=== PATIENT | female | born 1950 | race Caucasian/White ===

== ENCOUNTER 2025-05-06 12:15 | Inpatient (IN) | payer MEDICARE, OTHER ==
[~2025-05-06] VITALS: Ht 162.6 cm; Wt 51.7 kg
[2025-05-06] MEDS ORDERED: CEFTRIAXONE 1GM BAG (ER ONLY) 50 ML IV ONE (12:43)
[2025-05-06 12:50] LABS: PLATELET COUNT (AUTO) 259 K/uL (150-450); RED BLOOD CELL COUNT(AUTO) 3.16 MIL/uL (4.0-5.2); RED CELL DISTRIBUTION WIDTH 14.6 % (11.5-15.0); WHITE BLOOD COUNT (AUTO) 12.1 K/uL (4.3-11.0)
[2025-05-06] MEDS: IV NS 0.9% 1,000 ML BAG IV ONE (12:50)
[2025-05-06] MEDS: CEFTRIAXONE 1 G in IV D5W 50 ML IV ONE (12:51)
[2025-05-06 12:59] LABS: CALCIUM, SERUM 9.8 mg/dL (8.5-10.1); CREATININE 1.5 mg/dL (0.6-1.3); SODIUM SERUM 143 mmol/L (136-145); UREA NITROGEN, BLOOD 37 mg/dL (7-18)
[2025-05-06 13:06] LABS: ASPARTATE AMINOTRANSFERASE 17 U/L (15-37); TOTAL PROTEIN, SERUM 7.1 g/dL (6.4-8.2)
[2025-05-06 13:07] LABS: LACTIC ACID 1.3 mmol/L (0.4-2.0)
[2025-05-06 13:12] LABS: INR 1.04 (0.91-1.10)
[2025-05-06] MEDS ORDERED: INSULIN REGULAR, HUMAN 100 UNIT/ML 10 ML VIAL IV ONE (14:30)
[2025-05-06] MEDS ORDERED: DEXTROSE 50%-WATER 50 ML DISP.SYRIN IV ONE (14:30)
[2025-05-06] MEDS ORDERED: Calcium Gluconate 1GM/10ML 4.65 MEQ in IV NS 0.9% 100 ML IV ONE (14:30)
[2025-05-06] MEDS ORDERED: SODIUM BICARBONATE SYR 50 MEQ/50 ML DISP.SYRIN IV ONE (14:30)
[2025-05-06] MEDS ORDERED: SODIUM ZIRCONIUM CYCLOSILICATE 10 GM POWD.PACK ONE (15:02)
[2025-05-06] MEDS: SODIUM ZIRCONIUM CYCLOSILICATE 10 GM POWD.PACK PO ONE (15:08)
[2025-05-06 15:16] LABS: APPEARANCE,URINE CLEAR (CLEAR); BLOOD, URINE NEGATIVE Ery/uL (NEGATIVE); LEUKOCYTE ESTERASE ,URINE NEGATIVE (NEGATIVE); NITRITE, URINE NEGATIVE (NEGATIVE); UGLUCOSE NEGATIVE (NEGATIVE)
[2025-05-06] MEDS ORDERED: Z GUARD REMEDY 4 OZ OINT TP PRN (15:30)
[2025-05-06] MEDS ORDERED: MAG HYDROX/AL HYDROX/SIMETH 30 ML UDC PO PRN (15:30)
[2025-05-06] MEDS: IV NS 0.9% 1,000 ML IV PRN (16:50)
[2025-05-06] MEDS: ENOXAPARIN SODIUM 30 MG/0.3 ML DISP.SYRIN SQ SCH (16:52)
[2025-05-06 18:50] VITALS: BP 113/64; TEMP 98.3; O2SAT 98
[2025-05-06] MEDS: ACETAMINOPHEN 325 MG TABLET PO PRN (19:33)
[2025-05-06 20:00] VITALS: BP 125/82; TEMP 98.1; O2SAT 99
[2025-05-07] VITALS: BP 101/57; TEMP 97.3; O2SAT 95
[2025-05-07 04:00] VITALS: BP 127/80; TEMP 98.1; O2SAT 96
[2025-05-07 07:12] LABS: PLATELET COUNT (AUTO) 217 K/uL (150-450); RED BLOOD CELL COUNT(AUTO) 2.94 MIL/uL (4.0-5.2); RED CELL DISTRIBUTION WIDTH 14.8 % (11.5-15.0); WHITE BLOOD COUNT (AUTO) 8.9 K/uL (4.3-11.0)
[2025-05-07 08:00] VITALS: BP 120/72; TEMP 97.8; O2SAT 98
[2025-05-07 08:09] LABS: CALCIUM, SERUM 9.3 mg/dL (8.5-10.1); CREATININE 1.2 mg/dL (0.6-1.3); PHOSPHORUS 5.1 mg/dL (2.5-4.9); SODIUM SERUM 146.0 mmol/L (136-145); UREA NITROGEN, BLOOD 30.0 mg/dL (7-18)
[2025-05-07 12:00] VITALS: BP 118/71; TEMP 98.4; O2SAT 97
[2025-05-07] MEDS: CEFTRIAXONE 1 G in IV D5W 50 ML IV SCH (12:07)
[2025-05-07] MEDS: MAGNESIUM OXIDE 400 MG TABLET PO ONE (12:07)
[2025-05-07 16:00] VITALS: BP 129/67; TEMP 98.1; O2SAT 98
[2025-05-07 20:00] VITALS: BP 122/61; TEMP 98.2; O2SAT 95
[2025-05-08 07:12] LABS: PLATELET COUNT (AUTO) 189 K/uL (150-450); RED BLOOD CELL COUNT(AUTO) 2.75 MIL/uL (4.0-5.2); RED CELL DISTRIBUTION WIDTH 14.4 % (11.5-15.0); WHITE BLOOD COUNT (AUTO) 8.0 K/uL (4.3-11.0)
[2025-05-08 07:25] LABS: CREATINE KINASE, TOTAL 13 U/L (26-192)
[2025-05-08 07:29] LABS: ASPARTATE AMINOTRANSFERASE 16 U/L (15-37); CALCIUM, SERUM 8.9 mg/dL (8.5-10.1); CREATININE 1.1 mg/dL (0.6-1.3); PHOSPHORUS 4.9 mg/dL (2.5-4.9); SODIUM SERUM 143 mmol/L (136-145); TOTAL PROTEIN, SERUM 6.1 g/dL (6.4-8.2); UREA NITROGEN, BLOOD 21 mg/dL (7-18)
[2025-05-08 08:00] VITALS: BP 122/63; TEMP 98.5; O2SAT 99
[2025-05-08] MEDS: MAGNESIUM OXIDE 400 MG TABLET PO ONE (12:25)
[2025-05-08] MEDS ORDERED: DOCU100C36 PO (12:26)
[2025-05-08] MEDS ORDERED: INSU100I26 SQ (12:26)
[2025-05-08] MEDS ORDERED: OXYC-117 PO (12:26)
[2025-05-08] MEDS ORDERED: ASCO500T10 PO (12:26)
[2025-05-08] MEDS ORDERED: POTA-88 PO (12:26)
[2025-05-08] MEDS ORDERED: ACET325T53 PO (12:26)
[2025-05-08] MEDS ORDERED: INSU100V39 SQ (12:26)
[2025-05-08] MEDS ORDERED: LIDO30AD10 TP (12:26)
[2025-05-08] MEDS ORDERED: SENN-261 PO (12:26)
[2025-05-08] MEDS ORDERED: PHEN26CR2 RC (12:26)
[2025-05-08] MEDS ORDERED: ALLO100T PO (12:26)
[2025-05-08] MEDS ORDERED: GABA400C PO (12:26)
[2025-05-08] MEDS ORDERED: BISA10SU11 RC (12:26)
[2025-05-08] MEDS ORDERED: AMIN30LI27 PO (12:26)
[2025-05-08] MEDS ORDERED: FERR325T24 PO (12:26)
[2025-05-08] MEDS ORDERED: NA P133E RC (12:26)
[2025-05-08] MEDS ORDERED: BACL5TAB PO (12:26)
[2025-05-08] MEDS ORDERED: MIRT-90 PO (12:26)
[2025-05-08] MEDS ORDERED: MAGN400O6 PO (12:26)
[2025-05-08] MEDS ORDERED: NALO4SPR NS (12:26)
[2025-05-08] MEDS ORDERED: CELE200C PO (12:26)
[2025-05-08] MEDS ORDERED: CARV3.122 PO (12:26)
[2025-05-08] MEDS ORDERED: OXYC1TAB10 PO (12:26)
[2025-05-08] MEDS ORDERED: MULT-213 PO (12:26)
[2025-05-08] MEDS ORDERED: FURO40TA5 PO (12:26)
[2025-05-08] MEDS ORDERED: ERGO500040 PO (12:26)
[2025-05-08] MEDS ORDERED: PANT40TA2 PO (12:26)
[2025-05-08 16:00] VITALS: BP 129/66; TEMP 97.7; O2SAT 98
[2025-05-08 21:01] VITALS: BP 127/66; TEMP 97.7; O2SAT 98
[2025-05-08] MEDS: INSULIN REGULAR, HUMAN 100 UNIT/ML 3 ML VIAL SQ PRN (21:15)
[2025-05-08] MEDS: BLOOD SUGAR DIAGNOSTIC 1 EACH STRIP IN SCH (21:15)
[2025-05-09 07:12] LABS: CALCIUM, SERUM 8.9 mg/dL (8.5-10.1); CREATININE 1.0 mg/dL (0.6-1.3); SODIUM SERUM 141.0 mmol/L (136-145); UREA NITROGEN, BLOOD 15.0 mg/dL (7-18)
[2025-05-09 08:12] LABS: PTH, INTACT 10 pg/mL (15-65)
[2025-05-09 08:53] VITALS: BP 139/62; TEMP 97.7; O2SAT 100
[2025-05-09] MEDS: MAGNESIUM OXIDE 400 MG TABLET PO ONE (11:10)
[2025-05-09] MEDS: ONDANSETRON HCL/PF 4 MG/2 ML VIAL IVP PRN (13:17)
[2025-05-09 16:19] VITALS: BP 129/59; TEMP 97.9; O2SAT 99
[2025-05-09] MEDS: ENSURE ENLIVE 237 ML LIQUID (VANILLA) PO SCH (17:34)
[2025-05-09 20:00] VITALS: BP 125/81; TEMP 98.1; O2SAT 99
[2025-05-10 07:39] LABS: CALCIUM, SERUM 8.6 mg/dL (8.5-10.1); CREATININE 0.8 mg/dL (0.6-1.3); SODIUM SERUM 141.0 mmol/L (136-145); UREA NITROGEN, BLOOD 13.0 mg/dL (7-18)
[2025-05-10 08:00] VITALS: BP 124/67; TEMP 98.2; O2SAT 96
[2025-05-10] MEDS: MAGNESIUM OXIDE 400 MG TABLET PO ONE (10:01)
[2025-05-10] MEDS: GABAPENTIN 300 MG CAPSULE PO SCH (11:02)
[2025-05-10 12:48] LABS: IRON, SERUM 48 ug/dl (50-175)
[2025-05-10 20:00] VITALS: BP 127/79; TEMP 98.6; O2SAT 96
[2025-05-11 06:11] LABS: PLATELET COUNT (AUTO) 162 K/uL (150-450); RED BLOOD CELL COUNT(AUTO) 2.80 MIL/uL (4.0-5.2); RED CELL DISTRIBUTION WIDTH 14.3 % (11.5-15.0); WHITE BLOOD COUNT (AUTO) 7.3 K/uL (4.3-11.0)
[2025-05-11 06:30] LABS: CALCIUM, SERUM 8.4 mg/dL (8.5-10.1); CREATININE 0.8 mg/dL (0.6-1.3); SODIUM SERUM 139.0 mmol/L (136-145); UREA NITROGEN, BLOOD 16.0 mg/dL (7-18)
[2025-05-11 08:00] VITALS: BP 110/51; TEMP 97.9; O2SAT 98
[2025-05-11] MEDS ORDERED: BACLOFEN (10 MG) 10 MG TABLET PO PRN (08:00)
[2025-05-11] MEDS ORDERED: NALOXONE HCL 4 MG SPRAY NS PRN (08:00)
[2025-05-11] MEDS ORDERED: NA PHOS,M-B/NA PHOS,DI-BA 1 EA ENEMA RC PRN (08:00)
[2025-05-11] MEDS: LIDOCAINE 5% (PATCH) 1 EA PATCH TP SCH (08:25)
[2025-05-11] MEDS: ASCORBIC ACID 500 MG TABLET PO SCH (08:27)
[2025-05-11] MEDS: MULTIVITAMINS,THERAGRAN 1 UDTAB TABLET PO SCH (08:27)
[2025-05-11] MEDS: DOCUSATE SODIUM 100 MG CAPSULE PO SCH (08:27)
[2025-05-11] MEDS: oxyCODONE/APAP (5/325 MG) 1 UDTAB TABLET PO PRN (08:28)
[2025-05-11] MEDS: CARVEDILOL 3.125 MG TABLET PO SCH (08:29)
[2025-05-11] MEDS: FUROSEMIDE 40 MG TABLET PO SCH (08:29)
[2025-05-11] MEDS: POTASSIUM CHLORIDE 20 MEQ TAB.PRT.SR PO SCH (08:29)
[2025-05-11] MEDS: CELECOXIB 100 MG CAPSULE PO SCH (08:29)
[2025-05-11] MEDS ORDERED: PHENYLEPHRINE/SHK LV/MO/PET,WH 30 GM TUBE RC PRN (08:30)
[2025-05-11] MEDS: ERGOCALCIFEROL (VITAMIN D 2) 50,000 UNIT CAPSULE PO SCH (09:10)
[2025-05-11] MEDS: INSULIN ASPART/LISPRO 100 UNIT/ML CARTRIDGE SQ SCH (09:11)
[2025-05-11] MEDS: PROSOURCE / PROSTAT (PYXIS) 30 ML UDC PO SCH (09:12)
[2025-05-11] MEDS: FERROUS SULFATE (325 MG) 325 MG/TAB TABLET PO SCH (15:35)
[2025-05-11 16:00] VITALS: BP 128/65; TEMP 98.1; O2SAT 98
[2025-05-11 20:00] VITALS: BP 124/65; TEMP 97.9; O2SAT 96
[2025-05-11] MEDS: SENNOSIDES 8.6 MG TABLET PO SCH (21:11)
[2025-05-11] MEDS: MIRTAZAPINE 15 MG TABLET PO SCH (21:12)
[2025-05-11] MEDS: ALLOPURINOL 100 MG TABLET PO SCH (21:20)
[2025-05-11] MEDS: INSULIN GLARGINE, 100 UNIT/ML CARTRIDGE SQ SCH (21:24)
[2025-05-12 07:00] VITALS: BP 150/54; TEMP 97.5; O2SAT 98
[2025-05-12 07:15] LABS: PLATELET COUNT (AUTO) 152 K/uL (150-450); RED BLOOD CELL COUNT(AUTO) 2.73 MIL/uL (4.0-5.2); RED CELL DISTRIBUTION WIDTH 13.8 % (11.5-15.0); WHITE BLOOD COUNT (AUTO) 6.9 K/uL (4.3-11.0)
[2025-05-12 07:25] LABS: CALCIUM, SERUM 8.7 mg/dL (8.5-10.1); CREATININE 1.0 mg/dL (0.6-1.3); SODIUM SERUM 144.0 mmol/L (136-145); UREA NITROGEN, BLOOD 28.0 mg/dL (7-18)
[2025-05-12] MEDS: PANTOPRAZOLE 40 MG TABLET.DR PO SCH (09:33)
[2025-05-12 16:00] VITALS: BP 123/69; TEMP 97.5; O2SAT 96
[2025-05-12] MEDS: GLUCERNA SHAKE 237 ML CAN PO SCH (17:40)
[2025-05-12 21:41] VITALS: BP 103/62; TEMP 97.7; O2SAT 96
[2025-05-13 07:07] LABS: CALCIUM, SERUM 8.7 mg/dL (8.5-10.1); CREATININE 0.9 mg/dL (0.6-1.3); PLATELET COUNT (AUTO) 150 K/uL (150-450); RED BLOOD CELL COUNT(AUTO) 2.78 MIL/uL (4.0-5.2); RED CELL DISTRIBUTION WIDTH 14.6 % (11.5-15.0); SODIUM SERUM 144.0 mmol/L (136-145); UREA NITROGEN, BLOOD 39.0 mg/dL (7-18); WHITE BLOOD COUNT (AUTO) 6.0 K/uL (4.3-11.0)
[2025-05-13 08:00] VITALS: BP 148/61; TEMP 97.7; O2SAT 98
[2025-05-13 09:14] LABS: INR 1.05 (0.91-1.10)
[2025-05-13 16:00] VITALS: BP 105/65; TEMP 98.2; O2SAT 97
[2025-05-13] MEDS: HYDROMORPHONE HCL 2 MG TABLET PO PRN (19:33)
[2025-05-13 20:00] VITALS: BP 100/61; TEMP 97.9; O2SAT 98
[2025-05-14 07:33] LABS: PLATELET COUNT (AUTO) 165 K/uL (150-450); RED BLOOD CELL COUNT(AUTO) 2.94 MIL/uL (4.0-5.2); RED CELL DISTRIBUTION WIDTH 14.6 % (11.5-15.0); WHITE BLOOD COUNT (AUTO) 9.0 K/uL (4.3-11.0)
[2025-05-14 08:00] VITALS: TEMP 97.9; O2SAT 97
[2025-05-14 16:00] VITALS: BP 100/57; TEMP 98.4; O2SAT 97
[2025-05-14 20:00] VITALS: BP 99/59; TEMP 98.1; O2SAT 95
[2025-05-15 06:19] LABS: PLATELET COUNT (AUTO) 180 K/uL (150-450); RED BLOOD CELL COUNT(AUTO) 2.94 MIL/uL (4.0-5.2); RED CELL DISTRIBUTION WIDTH 14.9 % (11.5-15.0); WHITE BLOOD COUNT (AUTO) 10.5 K/uL (4.3-11.0)
[2025-05-15 06:39] LABS: INR 1.07 (0.91-1.10)
[2025-05-15 06:56] LABS: CALCIUM, SERUM 8.8 mg/dL (8.5-10.1); CREATININE 0.9 mg/dL (0.6-1.3); SODIUM SERUM 140.0 mmol/L (136-145); UREA NITROGEN, BLOOD 35.0 mg/dL (7-18)
[2025-05-15 08:00] VITALS: BP 106/68; TEMP 98.4; O2SAT 95
[2025-05-15 16:00] VITALS: BP 105/57; TEMP 98.1; O2SAT 98
[2025-05-15] MEDS: MAGNESIUM HYDROXIDE 30 ML UDC PO PRN (20:25)
[2025-05-15 20:48] VITALS: BP 109/62; TEMP 97.9; O2SAT 97
[2025-05-16] MEDS ORDERED: IV PREMIX NS +20MEQ KCL 1 L IV ONE (00:29)
[2025-05-16] MEDS: Potassium Chloride 20 MEQ in IV NS 0.9% 1,000 ML IV PRN (01:21)
[2025-05-16 07:30] VITALS: BP 121/58; TEMP 98.2; O2SAT 96
[2025-05-16 07:38] LABS: PLATELET COUNT (AUTO) 153 K/uL (150-450); RED BLOOD CELL COUNT(AUTO) 2.60 MIL/uL (4.0-5.2); RED CELL DISTRIBUTION WIDTH 14.9 % (11.5-15.0); WHITE BLOOD COUNT (AUTO) 10.3 K/uL (4.3-11.0)
[2025-05-16] MEDS ORDERED: FENTANYL PF 100MCG/2ML AMPUL ONE ×2 (07:54→10:53)
[2025-05-16] MEDS ORDERED: SUGAMMADEX SODIUM 200 MG/2 ML VIAL IV ONE (07:55)
[2025-05-16] MEDS ORDERED: FAMOTIDINE/PF INJ 20 MG/2 ML VIAL IV ONE (07:55)
[2025-05-16] MEDS ORDERED: ROCURONIUM BROMIDE 50 MG/5 ML ONE (07:55)
[2025-05-16 08:01] LABS: CALCIUM, SERUM 8.3 mg/dL (8.5-10.1); CREATININE 0.9 mg/dL (0.6-1.3); PHOSPHORUS 3.3 mg/dL (2.5-4.9); SODIUM SERUM 137.0 mmol/L (136-145); UREA NITROGEN, BLOOD 35.0 mg/dL (7-18)
[2025-05-16] MEDS ORDERED: TRIAMCINOLONE ACETONIDE SUSP 40 MG/ML 1 ML ONE (08:26)
[2025-05-16] MEDS ORDERED: LIDOCAINE 0.5%-EPI 1:200,000 50 ML VIAL ONE ×2 (08:26→11:29)
[2025-05-16] MEDS ORDERED: HEMOSTATIC MATRIX 8 ML 1 EACH PAD MC ONE ×2 (08:26→10:58)
[2025-05-16] MEDS ORDERED: CEFAZOLIN 1 GM ONE (08:26)
[2025-05-16] MEDS ORDERED: ALBUMIN 5% 250 ML IV ONE (08:55)
[2025-05-16] MEDS ORDERED: SEVOFLURANE 250 ML BOTTLE IH ONE (08:55)
[2025-05-16] MEDS ORDERED: ESMOLOL INJ 100 MG/10 ML VIAL IV ONE (08:55)
[2025-05-16] MEDS ORDERED: dexaMETHasone SOD PHOSPHATE 1 ML ONE (09:11)
[2025-05-16] MEDS ORDERED: SENNOSIDES 8.6 MG TABLET PO PRN (14:30)
[2025-05-16] MEDS ORDERED: CYCLOBENZAPRINE 10 MG TABLET PO PRN (14:30)
[2025-05-16] MEDS ORDERED: BISACODYL SUPP (10 MG) 10 MG/SUPP.RECT SUPP.RECT RC PRN (14:30)
[2025-05-16] MEDS ORDERED: DOCUSATE SODIUM 250 MG CAPSULE PO PRN (14:30)
[2025-05-16] MEDS: IV NS W/20MEQ KCL 1L IV SCH (15:11)
[2025-05-16] MEDS: HYDROMORPHONE 1 MG/1 ML DISP.SYRIN IV PRN (15:27)
[2025-05-16 16:00] VITALS: BP 80/48; TEMP 97.3; O2SAT 100
[2025-05-16] MEDS: ACETAMINOPHEN 325 MG TABLET PO PRN (19:38)
[2025-05-16 20:00] VITALS: BP 87/51; TEMP 97.7; O2SAT 99
[2025-05-16] MEDS: ANCEF 1 GM/50 ML D5W IV SCH (20:00)
[2025-05-16 22:31] VITALS: BP 92/57
[2025-05-16] MEDS: IV NS 0.9% 250 ML IV ONE (22:31)
[2025-05-17 00:29] VITALS: BP 112/55
[2025-05-17 07:30] VITALS: BP 122/51; TEMP 97.7; O2SAT 99
[2025-05-17 12:51] LABS: CALCIUM, SERUM 8.3 mg/dL (8.5-10.1); CREATININE 1.0 mg/dL (0.6-1.3); SODIUM SERUM 142.0 mmol/L (136-145); UREA NITROGEN, BLOOD 31.0 mg/dL (7-18)
[2025-05-17 13:05] LABS: PLATELET COUNT (AUTO) 174 K/uL (150-450); RED BLOOD CELL COUNT(AUTO) 2.55 MIL/uL (4.0-5.2); RED CELL DISTRIBUTION WIDTH 14.7 % (11.5-15.0); WHITE BLOOD COUNT (AUTO) 10.9 K/uL (4.3-11.0)
[2025-05-17] MEDS: KETOROLAC TROMETHAMINE 15 MG/ML VIAL IV PRN (14:25)
[2025-05-17 16:06] VITALS: BP 109/59; TEMP 97.7; O2SAT 99
[2025-05-17 21:00] VITALS: BP 113/58; TEMP 97.9; O2SAT 99
[2025-05-18 06:56] LABS: PLATELET COUNT (AUTO) 158 K/uL (150-450); RED BLOOD CELL COUNT(AUTO) 2.36 MIL/uL (4.0-5.2); RED CELL DISTRIBUTION WIDTH 16.3 % (11.5-15.0); WHITE BLOOD COUNT (AUTO) 9.3 K/uL (4.3-11.0)
[2025-05-18 07:18] LABS: CALCIUM, SERUM 8.3 mg/dL (8.5-10.1); CREATININE 0.9 mg/dL (0.6-1.3); PHOSPHORUS 2.9 mg/dL (2.5-4.9); SODIUM SERUM 139.0 mmol/L (136-145); UREA NITROGEN, BLOOD 24.0 mg/dL (7-18)
[2025-05-18 08:30] VITALS: BP 120/62; TEMP 98.4; O2SAT 99
[2025-05-18] MEDS: HEPARIN SODIUM, PORCINE 5000 UNITS/1 ML VIAL SQ SCH (09:00)
[2025-05-18 20:00] VITALS: BP 127/75; TEMP 98.4; O2SAT 96
[2025-05-19 07:00] VITALS: BP 123/62; TEMP 99.3; O2SAT 95
[2025-05-19 07:18] LABS: PLATELET COUNT (AUTO) 180 K/uL (150-450); RED BLOOD CELL COUNT(AUTO) 2.46 MIL/uL (4.0-5.2); RED CELL DISTRIBUTION WIDTH 14.6 % (11.5-15.0); WHITE BLOOD COUNT (AUTO) 8.6 K/uL (4.3-11.0)
[2025-05-19 07:33] LABS: CALCIUM, SERUM 8.6 mg/dL (8.5-10.1); CREATININE 1.2 mg/dL (0.6-1.3); PHOSPHORUS 3.7 mg/dL (2.5-4.9); SODIUM SERUM 139.0 mmol/L (136-145); UREA NITROGEN, BLOOD 28.0 mg/dL (7-18)
[2025-05-19 13:05] VITALS: BP 123/84; TEMP 99.3
[2025-05-19 16:00] VITALS: BP 119/64; TEMP 99.1; O2SAT 96
[2025-05-19 20:00] VITALS: BP 109/61; TEMP 98.2; O2SAT 96
[2025-05-20 07:42] LABS: PLATELET COUNT (AUTO) 162 K/uL (150-450); RED BLOOD CELL COUNT(AUTO) 2.39 MIL/uL (4.0-5.2); RED CELL DISTRIBUTION WIDTH 14.7 % (11.5-15.0); WHITE BLOOD COUNT (AUTO) 8.2 K/uL (4.3-11.0)
[2025-05-20 07:56] LABS: CALCIUM, SERUM 8.8 mg/dL (8.5-10.1); CREATININE 0.9 mg/dL (0.6-1.3); PHOSPHORUS 4.4 mg/dL (2.5-4.9); SODIUM SERUM 138.0 mmol/L (136-145); UREA NITROGEN, BLOOD 26.0 mg/dL (7-18)
[2025-05-20 08:00] VITALS: BP 98/57; TEMP 98.6; O2SAT 97
[2025-05-20] MEDS ORDERED: ENSURE ENLIVE 237 ML LIQUID (VANILLA) PO SCH (08:00)
[2025-05-20] MEDS: GLUCERNA SHAKE 237 ML CAN PO SCH (08:42)
[2025-05-20] MEDS: ACETAMINOPHEN ES 500 MG TABLET PO ONE (10:00)
[2025-05-20] MEDS: CYCLOBENZAPRINE 10 MG TABLET PO SCH (10:07)
[2025-05-20 16:00] VITALS: BP 103/59; TEMP 98.5; O2SAT 97
[2025-05-20 20:00] VITALS: BP 104/61; TEMP 98.6; O2SAT 95
[2025-05-21 06:55] LABS: PLATELET COUNT (AUTO) 163 K/uL (150-450); RED BLOOD CELL COUNT(AUTO) 2.35 MIL/uL (4.0-5.2); RED CELL DISTRIBUTION WIDTH 14.6 % (11.5-15.0); WHITE BLOOD COUNT (AUTO) 8.2 K/uL (4.3-11.0)
[2025-05-21 07:12] LABS: CALCIUM, SERUM 8.7 mg/dL (8.5-10.1); CREATININE 0.9 mg/dL (0.6-1.3); SODIUM SERUM 138.0 mmol/L (136-145); UREA NITROGEN, BLOOD 27.0 mg/dL (7-18)
[2025-05-21 08:00] VITALS: BP_SYST 100; BP_SYST 126; BP_DIAS 110; BP_DIAS 86; TEMP 97.9; TEMP 99; O2SAT 97
[2025-05-21 09:22] VITALS: BP 100/86; TEMP 97.9; O2SAT 97
[2025-05-21] MEDS ORDERED: CYCLOBENZAPRINE 10 MG TABLET PO PRN (12:30)
[2025-05-21] MEDS: dexaMETHasone SOD PHOSPHATE 10 MG/ML VIAL IV ONE (12:39)
[2025-05-21 16:00] VITALS: BP 104/61; TEMP 98.4; O2SAT 98
[2025-05-21 20:00] VITALS: BP 102/60; TEMP 97.9; O2SAT 97
[2025-05-21] MEDS: dexaMETHasone SOD PHOSPHATE 10 MG/ML VIAL IV SCH (21:43)
[2025-05-21] MEDS: oxyCODONE/APAP (5/325 MG) 1 UDTAB TABLET PO PRN (22:12)
[2025-05-22 06:54] LABS: PLATELET COUNT (AUTO) 147 K/uL (150-450); RED BLOOD CELL COUNT(AUTO) 2.38 MIL/uL (4.0-5.2); RED CELL DISTRIBUTION WIDTH 14.0 % (11.5-15.0); WHITE BLOOD COUNT (AUTO) 4.6 K/uL (4.3-11.0)
[2025-05-22 07:01] LABS: CALCIUM, SERUM 8.9 mg/dL (8.5-10.1); CREATININE 1.0 mg/dL (0.6-1.3); SODIUM SERUM 136.0 mmol/L (136-145); UREA NITROGEN, BLOOD 39.0 mg/dL (7-18)
[2025-05-22 08:00] VITALS: BP 120/66; TEMP 97.5; O2SAT 98
[2025-05-22] MEDS: IV NS 0.9% 500 ML IV SCH (10:51)
[2025-05-22] MEDS: INSULIN REGULAR, HUMAN 100 UNIT/ML 3 ML VIAL SQ PRN (11:50)
[2025-05-22] MEDS: HYDROMORPHONE 1 MG/1 ML DISP.SYRIN IV PRN (14:58)
[2025-05-22 15:00] VITALS: BP 102/78; TEMP 97.7; O2SAT 98
[2025-05-22 20:00] VITALS: BP 113/63; TEMP 98.1; O2SAT 97
[2025-05-22] MEDS: *INSULIN REGULAR(HUMULIN R)HUM 100 UNIT/ML VIAL SQ PRN (21:33)
[2025-05-22] MEDS: oxyCODONE/APAP (5/325 MG) 1 UDTAB TABLET PO PRN (23:31)
[2025-05-23 07:13] LABS: PLATELET COUNT (AUTO) 152 K/uL (150-450); RED BLOOD CELL COUNT(AUTO) 2.23 MIL/uL (4.0-5.2); RED CELL DISTRIBUTION WIDTH 14.3 % (11.5-15.0); WHITE BLOOD COUNT (AUTO) 6.6 K/uL (4.3-11.0)
[2025-05-23 07:25] LABS: CALCIUM, SERUM 8.5 mg/dL (8.5-10.1); CREATININE 1.2 mg/dL (0.6-1.3); SODIUM SERUM 140.0 mmol/L (136-145); UREA NITROGEN, BLOOD 50.0 mg/dL (7-18)
[2025-05-23 08:00] VITALS: BP 114/63; TEMP 97.9; O2SAT 98
[2025-05-23] MEDS: IV NS 0.9% 500 ML IV SCH (14:58)
[2025-05-23 16:00] VITALS: BP 102/76; TEMP 97.5; O2SAT 97
[2025-05-23 20:00] VITALS: BP 141/82; TEMP 97.5; O2SAT 97
[2025-05-24] MEDS: HYDROMORPHONE HCL 2 MG TABLET PO PRN (03:45)
[2025-05-24] MEDS: DEXTROSE 50%-WATER 50 ML DISP.SYRIN IV PRN (05:33)
[2025-05-24 07:07] LABS: PLATELET COUNT (AUTO) 182 K/uL (150-450); RED BLOOD CELL COUNT(AUTO) 2.41 MIL/uL (4.0-5.2); RED CELL DISTRIBUTION WIDTH 14.6 % (11.5-15.0); WHITE BLOOD COUNT (AUTO) 8.0 K/uL (4.3-11.0)
[2025-05-24 07:18] LABS: CALCIUM, SERUM 8.8 mg/dL (8.5-10.1); CREATININE 1.0 mg/dL (0.6-1.3); SODIUM SERUM 143.0 mmol/L (136-145); UREA NITROGEN, BLOOD 56.0 mg/dL (7-18)
[2025-05-24 08:00] VITALS: BP 117/63; TEMP 97.3; O2SAT 97
[2025-05-24 09:00] VITALS: BP 117/63
[2025-05-24] MEDS ORDERED: CYCL10TA9 PO (12:48)
[2025-05-24] MEDS ORDERED: METH4TAB17 PO (12:48)
[2025-05-24] MEDS ORDERED: GABA300C PO (12:48)
[2025-05-24] MEDS: LACTULOSE 10 G/15 ML UDC (PYXIS) PR ONE (14:03)
[2025-05-24] MEDS: BISACODYL SUPP (10 MG) 10 MG/SUPP.RECT SUPP.RECT RC PRN (14:51)
[2025-05-25 08:09] LABS: *SPE A/G RATIO 0.6 (0.7-1.7); *SPE ALBUMIN 2.1 g/dL (2.9-4.4); *SPE ALPHA-1-GLOBULIN 0.4 g/dL (0.0-0.4); *SPE ALPHA-2-GLOBULIN 0.9 g/dL (0.4-1.0); *SPE BETA GLOBULIN 1.0 g/dL (0.7-1.3); *SPE GLOBULIN, TOTAL 3.4 g/dL (2.2-3.9); *SPE M-SPIKE Not Observed g/dL (Not Observed); *SPE PROTEIN TOTAL 5.5 g/dL (6.0-8.5); *SPEGAMMA GLOBULIN 1.1 g/dL (0.4-1.8)
== END 2025-05-24 17:04 | DRG 518 ==
LOC: ER 12:17 → TELE 16:31 → MED 05-07 12:48
PROVIDERS: ADMIT Internal Medicine; ATTEND Nurse Practitioner Acute Care
PROC: 01NR0ZZ Release Sacral Nerve, Open Approach (ICD-10-PCS; 2025-05-16)
PROC: 00NY0ZZ Release Lumbar Spinal Cord, Open Approach (ICD-10-PCS; 2025-05-16)
PROC: BR16YZZ Fluoroscopy of Lumbar Facet Joint(s) using Other Contrast (ICD-10-PCS; 2025-05-16)
PROC: 01NB0ZZ Release Lumbar Nerve, Open Approach (ICD-10-PCS; principal; 2025-05-16 09:00)
DX: M47.26 Other spondylosis with radiculopathy, lumbar region (principal); G93.41 Metabolic encephalopathy; N17.0 Acute kidney failure with tubular necrosis; G95.89 Other specified diseases of spinal cord; M51.16 Intervertebral disc disorders with radiculopathy, lumbar region; E87.5 Hyperkalemia; E11.22 Type 2 diabetes mellitus with diabetic chronic kidney disease; D63.8 Anemia in other chronic diseases classified elsewhere; I12.9 Hypertensive chronic kidney disease with stage 1 through stage 4 chronic kidney disease, or unspecified chronic kidney disease; N18.9 Chronic kidney disease, unspecified; Z87.81 Personal history of (healed) traumatic fracture; G89.29 Other chronic pain; M54.89 Other dorsalgia; M79.662 Pain in left lower leg; M79.661 Pain in right lower leg; Z79.4 Long term (current) use of insulin; R26.89 Other abnormalities of gait and mobility; M41.56 Other secondary scoliosis, lumbar region; M48.062 Spinal stenosis, lumbar region with neurogenic claudication; R53.1 Weakness; Z20.822 Contact with and (suspected) exposure to COVID-19; M21.372 Foot drop, left foot; M81.0 Age-related osteoporosis without current pathological fracture
CPT/HCPCS: 36415; 70450-TC; 71045-TC; 72100-TC; 72148-TC; 73630-TC; 76770-TC; 80048-TC; 80053-TC; 80076-TC; 82550-TC; 82728-TC; 82962-TC; 83540-TC; 83605-TC; 83735-TC; 83970; 84100-TC; 84155; 84165; 84484-TC; 85025-TC; 85610-TC; 85730-TC; 86850-TC; 87040-TC; 87081-TC; 87086-TC; 93307-TC; 97110-TC; 97112-TC; 97116-TC; 97164; 97530-TC; 97535-TC; A4223; C1751; G0378; J0612; J0690; J0696; J1100; J1171; J1308; J1644; J1650; J1815; J1885; J2405; J2704; J3010; J3480; J3490; J7030; J7040; J7042; J7050; J7060; J8540; P9045

== ENCOUNTER 2025-06-04 12:38 | Inpatient (IN) | payer MEDICARE, MEDICAID ==
[~2025-06-04] VITALS: Ht 162.6 cm; Wt 52.6 kg
[~2025-06-04 12:38] MED LIST: ACET325T53 PO; ALLO100T PO; AMIN30LI27 PO; ASCO500T10 PO; BISA10SU11 RC; CARV3.122 PO; CEFT1VIA14 IV; CELE200C PO; CYCL10TA9 PO; DOCU100C36 PO; ERGO500040 PO; FERR325T24 PO; FURO40TA5 PO; GABA300C PO; INSU100I26 SQ; INSU100V39 SQ; LIDO30AD10 TP; MAGN400O6 PO; METH4TAB17 PO; MIRT-90 PO; MULT-213 PO; NA P133E RC; NALO4SPR NS; OXYC-117 PO; OXYC1TAB10 PO; PANT40TA2 PO; PHEN26CR2 RC; POTA-88 PO; SENN-261 PO; VANC750V IV
[2025-06-04] MEDS ORDERED: ZINC220C6 PO (13:40)
[2025-06-04 13:48] LABS: PLATELET COUNT (AUTO) 151 K/uL (150-450); RED BLOOD CELL COUNT(AUTO) 2.74 MIL/uL (4.0-5.2); RED CELL DISTRIBUTION WIDTH 15.0 % (11.5-15.0); WHITE BLOOD COUNT (AUTO) 6.7 K/uL (4.3-11.0)
[2025-06-04 13:55] LABS: CALCIUM, SERUM 8.7 mg/dL (8.5-10.1); CREATININE 1.1 mg/dL (0.6-1.3); SODIUM SERUM 138.0 mmol/L (136-145); UREA NITROGEN, BLOOD 35.0 mg/dL (7-18)
[2025-06-04 14:01] LABS: ASPARTATE AMINOTRANSFERASE 22.0 U/L (15-37); INR 1.02 (0.91-1.10); TOTAL PROTEIN, SERUM 6.3 g/dL (6.4-8.2)
[2025-06-04] MEDS ORDERED: IOHEXOL-350 100 ML VIAL IV ONE (15:01)
[2025-06-04] MEDS ORDERED: ONDANSETRON HCL/PF 4 MG/2 ML VIAL ONE (16:48)
[2025-06-04] MEDS ORDERED: MORPHINE SULFATE INJ 4 MG/ML DISP.SYRIN ONE (16:48)
[2025-06-04] MEDS: ONDANSETRON HCL/PF - ER 4 MG/2 ML VIAL IV ONE (16:58)
[2025-06-04] MEDS: MORPHINE SULFATE INJ 2 MG/ML DISP.SYRIN IV ONE (16:59)
[2025-06-04] MEDS ORDERED: ONDANSETRON HCL/PF 4 MG/2 ML VIAL IVP PRN (20:00)
[2025-06-04] MEDS ORDERED: DOSING PER PHARMACY-ZOSYN IV 1 EA EA XX PRN (20:00)
[2025-06-04] MEDS ORDERED: MAGNESIUM HYDROXIDE 30 ML UDC PO PRN (20:00)
[2025-06-04] MEDS ORDERED: DOSING PER PHARMACY-VANCOMYCIN IV XX PRN (20:00)
[2025-06-04] MEDS ORDERED: MAG HYDROX/AL HYDROX/SIMETH 30 ML UDC PO PRN (20:00)
[2025-06-04] MEDS ORDERED: Z GUARD REMEDY 4 OZ OINT TP PRN (20:00)
[2025-06-04] MEDS ORDERED: PIPERACI/TAZO 3.375GM/D5W 50ML PB IV ONE (20:01)
[2025-06-04] MEDS: PIPERACILLIN /TAZOBACTAM 3.375 G in IV D5W 50 ML IV ONE (20:08)
[2025-06-04 20:11] VITALS: BP 118/61; TEMP 98.2; O2SAT 98
[2025-06-04] MEDS ORDERED: BISACODYL SUPP (10 MG) 10 MG/SUPP.RECT SUPP.RECT RC PRN (21:00)
[2025-06-04] MEDS ORDERED: NALOXONE HCL 4 MG SPRAY NS PRN (21:00)
[2025-06-04] MEDS ORDERED: DEXTROSE 50%-WATER 50 ML DISP.SYRIN IV PRN (21:00)
[2025-06-04] MEDS ORDERED: VANCOMYCIN 1 GM /D5W 250 ML PB IV ONE (21:49)
[2025-06-04] MEDS: INSULIN REGULAR, HUMAN 100 UNIT/ML 3 ML VIAL SQ PRN (21:51)
[2025-06-04] MEDS: BLOOD SUGAR DIAGNOSTIC 1 EACH STRIP IN SCH (21:51)
[2025-06-04] MEDS: ALLOPURINOL 100 MG TABLET PO SCH (21:52)
[2025-06-04] MEDS: MIRTAZAPINE 15 MG TABLET PO SCH (21:52)
[2025-06-04] MEDS: SENNOSIDES 8.6 MG TABLET PO SCH (21:52)
[2025-06-04] MEDS: INSULIN GLARGINE, 100 UNIT/ML CARTRIDGE SQ SCH (21:56)
[2025-06-04] MEDS: HYDROMORPHONE 1 MG/1 ML DISP.SYRIN IV PRN (22:04)
[2025-06-04] MEDS: VANCOMYCIN 1 GM in IV D5W 250 ML IV ONE (22:06)
[2025-06-05] MEDS: oxyCODONE/APAP (5/325 MG) 1 UDTAB TABLET PO PRN (00:25)
[2025-06-05] MEDS: CYCLOBENZAPRINE 10 MG TABLET PO PRN (03:53)
[2025-06-05] MEDS ORDERED: PIPERACI/TAZO 3.375GM/D5W 50ML PB IV ONE (05:41)
[2025-06-05] MEDS: PIPERACILLIN /TAZOBACTAM 3.375 G in IV D5W 100 ML IV ONE (05:44)
[2025-06-05 07:07] LABS: PLATELET COUNT (AUTO) 151 K/uL (150-450); RED BLOOD CELL COUNT(AUTO) 2.65 MIL/uL (4.0-5.2); RED CELL DISTRIBUTION WIDTH 14.7 % (11.5-15.0); WHITE BLOOD COUNT (AUTO) 6.9 K/uL (4.3-11.0)
[2025-06-05 07:16] LABS: CALCIUM, SERUM 8.8 mg/dL (8.5-10.1); CREATININE 1.1 mg/dL (0.6-1.3); PHOSPHORUS 5.2 mg/dL (2.5-4.9); SODIUM SERUM 140.0 mmol/L (136-145); UREA NITROGEN, BLOOD 29.0 mg/dL (7-18)
[2025-06-05] MEDS: PANTOPRAZOLE 40 MG VIAL IV SCH (08:28)
[2025-06-05] MEDS: CARVEDILOL 3.125 MG TABLET PO SCH (08:29)
[2025-06-05] MEDS: DOCUSATE SODIUM 100 MG CAPSULE PO SCH (08:29)
[2025-06-05] MEDS: GABAPENTIN 300 MG CAPSULE PO SCH (08:29)
[2025-06-05] MEDS: CELECOXIB 100 MG CAPSULE PO SCH (08:29)
[2025-06-05] MEDS: ASCORBIC ACID 500 MG TABLET PO SCH (08:30)
[2025-06-05] MEDS: FUROSEMIDE 40 MG TABLET PO SCH (08:30)
[2025-06-05] MEDS: FERROUS SULFATE (325 MG) 325 MG/TAB TABLET PO SCH (08:30)
[2025-06-05] MEDS: LIDOCAINE 5% (PATCH) 1 EA PATCH TP SCH (08:30)
[2025-06-05 08:31] VITALS: BP 115/66; TEMP 98.1; O2SAT 99
[2025-06-05] MEDS: PIPERACILLIN /TAZOBACTAM 3.375 G in IV D5W 100 ML IV SCH (12:00)
[2025-06-05 16:32] VITALS: BP 88/52; TEMP 98.1; O2SAT 95
[2025-06-05 20:00] VITALS: BP 97/72; TEMP 97.9; O2SAT 98
[2025-06-05] MEDS: VANCOMYCIN 750 MG in IV D5W 250 ML IV SCH (21:22)
[2025-06-05] MEDS: HEPARIN SODIUM, PORCINE 5000 UNITS/1 ML VIAL SQ SCH (21:33)
[2025-06-06 07:30] VITALS: BP 113/82; TEMP 97.7; O2SAT 98
[2025-06-06] MEDS: PANTOPRAZOLE 40 MG TABLET.DR PO SCH (08:12)
[2025-06-06] MEDS: ENSURE ENLIVE CHOC 237 ML CAN PO SCH (08:16)
[2025-06-06 08:27] LABS: PLATELET COUNT (AUTO) 168 K/uL (150-450); RED BLOOD CELL COUNT(AUTO) 2.90 MIL/uL (4.0-5.2); RED CELL DISTRIBUTION WIDTH 15.1 % (11.5-15.0); WHITE BLOOD COUNT (AUTO) 8.2 K/uL (4.3-11.0)
[2025-06-06 08:51] LABS: CALCIUM, SERUM 9.1 mg/dL (8.5-10.1); CREATININE 1.5 mg/dL (0.6-1.3); PHOSPHORUS 6.3 mg/dL (2.5-4.9); SODIUM SERUM 137.0 mmol/L (136-145); UREA NITROGEN, BLOOD 30.0 mg/dL (7-18)
[2025-06-06] MEDS: IV NS 0.9% 1,000 ML IV PRN (09:00)
[2025-06-06 16:00] VITALS: BP 148/75; TEMP 97.6; O2SAT 93
[2025-06-06 20:00] VITALS: BP 90/50; TEMP 98.2; O2SAT 96
[2025-06-07] VITALS (8 sets, daily range): BP systolic 99–122; BP diastolic 47–64; TEMP 96–98.2; O2SAT 95–99
[2025-06-07 06:43] LABS: ASPARTATE AMINOTRANSFERASE 14.0 U/L (15-37); CALCIUM, SERUM 8.8 mg/dL (8.5-10.1); CREATININE 1.2 mg/dL (0.6-1.3); PHOSPHORUS 4.6 mg/dL (2.5-4.9); SODIUM SERUM 140.0 mmol/L (136-145); TOTAL PROTEIN, SERUM 6.3 g/dL (6.4-8.2); UREA NITROGEN, BLOOD 27.0 mg/dL (7-18)
[2025-06-07 07:01] LABS: PLATELET COUNT (AUTO) 137 K/uL (150-450); RED BLOOD CELL COUNT(AUTO) 2.59 MIL/uL (4.0-5.2); RED CELL DISTRIBUTION WIDTH 14.9 % (11.5-15.0); WHITE BLOOD COUNT (AUTO) 6.3 K/uL (4.3-11.0)
[2025-06-07] MEDS ORDERED: HEMOSTATIC MATRIX 8 ML 1 EACH PAD MC ONE (07:13)
[2025-06-07] MEDS ORDERED: LIDOCAINE 0.5%-EPI 1:200,000 50 ML VIAL ONE (07:13)
[2025-06-07] MEDS ORDERED: TRIAMCINOLONE ACETONIDE SUSP 40 MG/ML 1 ML ONE (07:13)
[2025-06-07] MEDS ORDERED: ANESTHESIA TRAY IN PYXIS 1 EA TRAY MC ONE (07:13)
[2025-06-07] MEDS ORDERED: CEFAZOLIN 1 GM ONE ×2 (07:13→08:09)
[2025-06-07] MEDS ORDERED: SUGAMMADEX SODIUM 200 MG/2 ML VIAL IV ONE (07:35)
[2025-06-07] MEDS ORDERED: FENTANYL PF 100MCG/2ML AMPUL ONE ×2 (07:35→10:03)
[2025-06-07] MEDS ORDERED: ROCURONIUM BROMIDE 50 MG/5 ML ONE (07:36)
[2025-06-07] MEDS ORDERED: MIDAZOLAM HCL 2 MG/2ML VIAL ONE (07:36)
[2025-06-07] MEDS ORDERED: HYDROMORPHONE 1 MG/1 ML DISP.SYRIN ONE (10:30)
[2025-06-07] MEDS ORDERED: BISACODYL SUPP (10 MG) 10 MG/SUPP.RECT SUPP.RECT RC PRN (10:30)
[2025-06-07] MEDS ORDERED: ZOLPIDEM TARTRATE 5 MG TABLET PO PRN (10:30)
[2025-06-07] MEDS ORDERED: DOCUSATE SODIUM 250 MG CAPSULE PO PRN (10:30)
[2025-06-07] MEDS ORDERED: ONDANSETRON HCL/PF 4 MG/2 ML VIAL ONE (10:33)
[2025-06-07] MEDS: IV NS W/20MEQ KCL 1L IV PRN (12:03)
[2025-06-07] MEDS: POTASSIUM CL. PREMIX PERIPHER. 50 ML IV SCH (12:03)
[2025-06-07] MEDS: HYDROMORPHONE 1 MG/1 ML DISP.SYRIN IV PRN (12:18)
[2025-06-07 16:25] LABS: APPEARANCE,URINE CLOUDY (CLEAR); BLOOD, URINE 1+ Ery/uL (NEGATIVE); LEUKOCYTE ESTERASE ,URINE 2+ (NEGATIVE); NITRITE, URINE NEGATIVE (NEGATIVE); UGLUCOSE NEGATIVE (NEGATIVE)
[2025-06-07 16:34] LABS: CREATININE, URINE 55.1 MG/DL (30.0-125.0); URINE SODIUM, RANDOM 89.0 mmol/l (40-220); URINE TOTAL PROTEIN 77.3 mg/dL (0-11.9)
[2025-06-07 17:10] LABS: ADD URINE CULTURE YES
[2025-06-07 17:11] LABS: CALCIUM OXALATE CRYSTALS,UR Moderate /HPF (None Seen); COARSE GRANULAR CASTS,URINE Few /LPF (None Seen)
[2025-06-07 18:17] LABS: EOSINOPHIL,URINE None Seen
[2025-06-08 01:09] VITALS: BP 107/47; TEMP 98.2; O2SAT 95
[2025-06-08 08:00] VITALS: BP 123/59; TEMP 98.4; O2SAT 94
[2025-06-08] MEDS ORDERED: IV NS W/20MEQ KCL 1L IV SCH (08:18)
[2025-06-08] MEDS: IV NS W/20MEQ KCL 1L IV SCH (09:18)
[2025-06-08 11:07] LABS: PLATELET COUNT (AUTO) 118 K/uL (150-450); RED BLOOD CELL COUNT(AUTO) 2.46 MIL/uL (4.0-5.2); RED CELL DISTRIBUTION WIDTH 16.1 % (11.5-15.0); WHITE BLOOD COUNT (AUTO) 7.1 K/uL (4.3-11.0)
[2025-06-08 11:49] LABS: ASPARTATE AMINOTRANSFERASE 14 U/L (15-37); CALCIUM, SERUM 7.9 mg/dL (8.5-10.1); CREATININE 1.2 mg/dL (0.6-1.3); PHOSPHORUS 3.2 mg/dL (2.5-4.9); SODIUM SERUM 132 mmol/L (136-145); TOTAL PROTEIN, SERUM 5.9 g/dL (6.4-8.2); UREA NITROGEN, BLOOD 21 mg/dL (7-18)
[2025-06-08 16:00] VITALS: BP 122/65; TEMP 99.3; O2SAT 96
[2025-06-08 20:00] VITALS: BP 111/59; TEMP 98.1; O2SAT 95
[2025-06-08] MEDS: MEROPENEM 1 G in IV NS 0.9% 100 ML IV SCH (21:58)
[2025-06-09 08:00] VITALS: BP 116/67; TEMP 98.1; O2SAT 97
[2025-06-09 08:08] LABS: CALCIUM, SERUM 8.2 mg/dL (8.5-10.1); CREATININE 1.0 mg/dL (0.6-1.3); SODIUM SERUM 141.0 mmol/L (136-145); UREA NITROGEN, BLOOD 13.0 mg/dL (7-18)
[2025-06-09] MEDS: ACIDOPHILUS/BULGARICUS 1 EACH TAB.CHEW PO SCH (08:49)
[2025-06-09 16:00] VITALS: BP 111/50; TEMP 98.8; O2SAT 98
[2025-06-09 20:00] VITALS: BP 125/76; TEMP 98.6; O2SAT 98
[2025-06-09] MEDS: ACETAMINOPHEN 325 MG TABLET PO PRN (21:02)
[2025-06-09] MEDS ORDERED: VANCOMYCIN HCL 1.25 GM in IV D5W 250 ML IV SCH (22:00)
[2025-06-10 06:13] LABS: CALCIUM, SERUM 8.5 mg/dL (8.5-10.1); CREATININE 1.1 mg/dL (0.6-1.3); SODIUM SERUM 140.0 mmol/L (136-145); UREA NITROGEN, BLOOD 13.0 mg/dL (7-18)
[2025-06-10 06:17] LABS: PLATELET COUNT (AUTO) 137 K/uL (150-450); RED BLOOD CELL COUNT(AUTO) 2.27 MIL/uL (4.0-5.2); RED CELL DISTRIBUTION WIDTH 15.1 % (11.5-15.0); WHITE BLOOD COUNT (AUTO) 5.4 K/uL (4.3-11.0)
[2025-06-10 08:00] VITALS: BP 105/59; TEMP 97.9; O2SAT 98
[2025-06-10 16:04] VITALS: BP 105/69; TEMP 98.2; O2SAT 97
[2025-06-10 20:00] VITALS: BP_SYST 112; BP_SYST 120; BP_DIAS 59; TEMP 99; O2SAT 99
[2025-06-10] MEDS: DAPTOMYCIN 500 MG in IV NS 0.9% 50 ML IV SCH (20:30)
[2025-06-11 07:45] LABS: CALCIUM, SERUM 8.3 mg/dL (8.5-10.1); CREATININE 0.8 mg/dL (0.6-1.3); SODIUM SERUM 138.0 mmol/L (136-145); UREA NITROGEN, BLOOD 11.0 mg/dL (7-18)
[2025-06-11 08:00] VITALS: BP 115/60; TEMP 99.1; O2SAT 97
[2025-06-11 16:00] VITALS: BP 103/60; TEMP 98.1; O2SAT 98
[2025-06-11 20:00] VITALS: BP 114/79; TEMP 98.1; O2SAT 98
[2025-06-12 08:00] VITALS: BP 115/67; TEMP 98.2; O2SAT 98
[2025-06-12] MEDS: ACIDOPHILUS/BULGARICUS 1 EACH TAB.CHEW PO SCH (08:25)
[2025-06-12 16:00] VITALS: BP 110/69; TEMP 98.4; O2SAT 97
[2025-06-12 20:00] VITALS: BP 120/50; TEMP 98.4; O2SAT 97
[2025-06-13 08:39] VITALS: BP 127/58; TEMP 98.4; O2SAT 98
== END 2025-06-13 17:00 | DRG 857 ==
LOC: ER 13:26 → MED 19:45
PROC: 0HB6XZZ Excision of Back Skin, External Approach (ICD-10-PCS; 2025-06-07)
PROC: 0HN Skin and Breast, Release (ICD-10-PCS; 2025-06-07)
PROC: 0J9700Z Drainage of Back Subcutaneous Tissue and Fascia with Drainage Device, Open Approach (ICD-10-PCS; principal; 2025-06-07 08:00)
PROC: 05H933Z Insertion of Infusion Device into Right Brachial Vein, Percutaneous Approach (ICD-10-PCS; 2025-06-09)
DX: T81.41XA Infection following a procedure, superficial incisional surgical site, initial encounter (principal); L02.212 Cutaneous abscess of back [any part, except buttock and flank]; D69.6 Thrombocytopenia, unspecified; N17.9 Acute kidney failure, unspecified; D63.8 Anemia in other chronic diseases classified elsewhere; B96.1 Klebsiella pneumoniae [K. pneumoniae] as the cause of diseases classified elsewhere; B96.4 Proteus (mirabilis) (morganii) as the cause of diseases classified elsewhere; E11.41 Type 2 diabetes mellitus with diabetic mononeuropathy; I10 Essential (primary) hypertension; Z16.12 Extended spectrum beta lactamase (ESBL) resistance; Z16.21 Resistance to vancomycin; Y83.8 Other surgical procedures as the cause of abnormal reaction of the patient, or of later complication, without mention of misadventure at the time of the procedure; Z87.891 Personal history of nicotine dependence; Y92.129 Unspecified place in nursing home as the place of occurrence of the external cause; G89.29 Other chronic pain; Z79.4 Long term (current) use of insulin; R79.89 Other specified abnormal findings of blood chemistry; E87.6 Hypokalemia; E11.9 Type 2 diabetes mellitus without complications
CPT/HCPCS: 36415; 71045-TC; 72074-TC; 72100-TC; 72110-TC; 72132-TC; 80048-TC; 80053-TC; 80076-TC; 80202-TC; 81001; 82570-TC; 82962-TC; 83605-TC; 83735-TC; 84100-TC; 84300-TC; 85025-TC; 85652-TC; 85730-TC; 86140-TC; 86850-TC; 87040-TC; 87070-TC; 87075-TC; 87081-TC; 87086-TC; 87186-TC; 88305-TC; 88312-TC; 93307-TC; 97110-TC; 97530-TC; A4223; A6213; A6223; A6253; A6254; A6403; G0378; J0330; J0690; J0878; J1171; J1644; J1815; J1885; J2185; J2250; J2270; J2405; J2470; J2543; J2704; J3010; J3373; J3374; J3480; J3490; J7030; J7040; J7050; J7060; Q9967

== ENCOUNTER 2025-07-15 11:34 | Inpatient (IN) | payer MEDICARE, OTHER ==
[~2025-07-15] VITALS: Ht 162.6 cm; Wt 51.5 kg
[~2025-07-15 11:34] MED LIST changes: -METH4TAB17 PO; -POTA-88 PO; +ZINC220C6 PO
[2025-07-15 12:16] LABS: PLATELET COUNT (AUTO) 304 K/uL (150-450); RED BLOOD CELL COUNT(AUTO) 3.33 MIL/uL (4.0-5.2); RED CELL DISTRIBUTION WIDTH 18.2 % (11.5-15.0); WHITE BLOOD COUNT (AUTO) 13.6 K/uL (4.3-11.0)
[2025-07-15 12:35] LABS: CALCIUM, SERUM 8.4 mg/dL (8.5-10.1); CREATININE 1.1 mg/dL (0.6-1.3); SODIUM SERUM 145.0 mmol/L (136-145); UREA NITROGEN, BLOOD 26.0 mg/dL (7-18)
[2025-07-15 12:41] LABS: LACTIC ACID 1.7 mmol/L (0.4-2.0)
[2025-07-15 12:48] LABS: ASPARTATE AMINOTRANSFERASE 17.0 U/L (15-37); TOTAL PROTEIN, SERUM 7.0 g/dL (6.4-8.2)
[2025-07-15] MEDS ORDERED: COLL30OI TP (13:22)
[2025-07-15] MEDS ORDERED: INSU100V3 SQ (13:22)
[2025-07-15] MEDS ORDERED: CHOL200074 PO (13:22)
[2025-07-15] MEDS ORDERED: DOSING PER PHARMACY-CEFEPIME IVPB XX PRN (14:00)
[2025-07-15] MEDS ORDERED: hydrALAZINE HCL IV 20 MG VIAL IV PRN (14:00)
[2025-07-15] MEDS ORDERED: DOSING PER PHARMACY-VANCOMYCIN IV XX PRN (14:00)
[2025-07-15] MEDS ORDERED: ONDANSETRON HCL/PF 4 MG/2 ML VIAL IVP PRN (14:00)
[2025-07-15] MEDS ORDERED: DEXTROSE 50%-WATER 50 ML DISP.SYRIN IV PRN (14:00)
[2025-07-15] MEDS: PIPERACILLIN /TAZOBACTAM 3.375 G in IV D5W 50 ML IV ONE (14:20)
[2025-07-15] MEDS ORDERED: MORPHINE SULFATE INJ 2 MG/ML DISP.SYRIN ONE (14:28)
[2025-07-15] MEDS: MORPHINE SULFATE INJ 2 MG/ML DISP.SYRIN IV PRN (14:32)
[2025-07-15] MEDS: VANCOMYCIN 1 GM in IV D5W 250 ML IV ONE (15:20)
[2025-07-15] MEDS: IV NS 0.9% 1,000 ML IV SCH (15:58)
[2025-07-15 16:00] VITALS: BP 138/63; TEMP 98.1; O2SAT 95
[2025-07-15] MEDS: GABAPENTIN 300 MG CAPSULE PO SCH (16:29)
[2025-07-15] MEDS: FERROUS SULFATE (325 MG) 325 MG/TAB TABLET PO SCH (16:29)
[2025-07-15] MEDS: CARVEDILOL 3.125 MG TABLET PO SCH (16:29)
[2025-07-15] MEDS: ASCORBIC ACID 500 MG TABLET PO SCH (16:30)
[2025-07-15] MEDS: BLOOD SUGAR DIAGNOSTIC 1 EACH STRIP VI SCH (17:09)
[2025-07-15] MEDS: CEFEPIME 2 GM in IV D5W 100 ML IV SCH (17:43)
[2025-07-15 20:00] VITALS: BP 131/71; TEMP 97.7; O2SAT 95
[2025-07-15] MEDS ORDERED: MEROPENEM 1 G in IV NS 0.9% 100 ML IV SCH (21:00)
[2025-07-15] MEDS: HYDROCODONE/APAP 5/325MG TABLET PO PRN (22:08)
[2025-07-15] MEDS: ALLOPURINOL 100 MG TABLET PO SCH (22:08)
[2025-07-15] MEDS: LINEZOLID 600 MG TABLET PO SCH (22:08)
[2025-07-15] MEDS: MEROPENEM 1 G in IV NS 0.9% 100 ML IV SCH (22:09)
[2025-07-15] MEDS: *INSULIN REGULAR(HUMULIN R)HUM 100 UNIT/ML VIAL SQ PRN (22:10)
[2025-07-16] MEDS: INSULIN REGULAR, HUMAN 100 UNIT/ML 3 ML VIAL SQ PRN (06:44)
[2025-07-16] MEDS: PANTOPRAZOLE 40 MG TABLET.DR PO SCH (07:30)
[2025-07-16 07:54] LABS: PLATELET COUNT (AUTO) 304 K/uL (150-450); RED BLOOD CELL COUNT(AUTO) 3.08 MIL/uL (4.0-5.2); RED CELL DISTRIBUTION WIDTH 17.9 % (11.5-15.0); WHITE BLOOD COUNT (AUTO) 10.0 K/uL (4.3-11.0)
[2025-07-16 08:12] LABS: INR 1.09 (0.91-1.10)
[2025-07-16 08:33] LABS: ASPARTATE AMINOTRANSFERASE 15.0 U/L (15-37); CALCIUM, SERUM 8.3 mg/dL (8.5-10.1); CREATININE 1.0 mg/dL (0.6-1.3); PHOSPHORUS 4.5 mg/dL (2.5-4.9); SODIUM SERUM 143.0 mmol/L (136-145); TOTAL PROTEIN, SERUM 6.3 g/dL (6.4-8.2); UREA NITROGEN, BLOOD 22.0 mg/dL (7-18)
[2025-07-16] MEDS: THERAHONEY GEL 1.5 OZ TUBE TP SCH (09:00)
[2025-07-16] MEDS: LIDOCAINE 5% (PATCH) 1 EA PATCH TP SCH (09:52)
[2025-07-16] MEDS: Magnesium 1GM/D5W 100ML PREMIX 100 ML IV SCH (10:52)
[2025-07-16] MEDS ORDERED: IOHEXOL-350 100 ML VIAL IV ONE (14:25)
[2025-07-16] MEDS: LORAZEPAM 1 MG TABLET PO PRN (14:31)
[2025-07-16] MEDS ORDERED: VANCOMYCIN 1 GM in IV D5W 250ml IV SCH (16:00)
[2025-07-16 17:22] LABS: APPEARANCE,URINE SLIGHTLY CLOUDY (CLEAR); BLOOD, URINE NEGATIVE Ery/uL (NEGATIVE); LEUKOCYTE ESTERASE ,URINE NEGATIVE (NEGATIVE); NITRITE, URINE POSITIVE (NEGATIVE); UGLUCOSE NEGATIVE (NEGATIVE)
[2025-07-16 17:28] LABS: ADD URINE CULTURE YES
[2025-07-16 20:00] VITALS: BP 116/66; TEMP 98.6; O2SAT 98
[2025-07-16] MEDS: HEPARIN SODIUM, PORCINE 5000 UNITS/1 ML VIAL SQ SCH (21:19)
[2025-07-17 07:00] VITALS: BP 130/80; TEMP 98.1; O2SAT 96
[2025-07-17 08:25] LABS: CALCIUM, SERUM 8.1 mg/dL (8.5-10.1); CREATININE 0.8 mg/dL (0.6-1.3); SODIUM SERUM 142.0 mmol/L (136-145); UREA NITROGEN, BLOOD 17.0 mg/dL (7-18)
[2025-07-17] MEDS ORDERED: GADOTERATE MEGLUMINE 10 MMOL/20 ML VIAL IV ONE (15:36)
[2025-07-17 17:00] VITALS: BP 115/54; TEMP 97.9; O2SAT 98
[2025-07-17 20:00] VITALS: BP 111/55; TEMP 97.7; O2SAT 98
[2025-07-17] MEDS: ACETAMINOPHEN 325 MG TABLET PO PRN (23:35)
[2025-07-18 07:33] LABS: CALCIUM, SERUM 8.1 mg/dL (8.5-10.1); CREATININE 1.1 mg/dL (0.6-1.3); PHOSPHORUS 3.6 mg/dL (2.5-4.9); SODIUM SERUM 141.0 mmol/L (136-145); UREA NITROGEN, BLOOD 17.0 mg/dL (7-18)
[2025-07-18 07:49] LABS: PLATELET COUNT (AUTO) 371 K/uL (150-450); RED BLOOD CELL COUNT(AUTO) 3.21 MIL/uL (4.0-5.2); RED CELL DISTRIBUTION WIDTH 17.7 % (11.5-15.0); WHITE BLOOD COUNT (AUTO) 9.9 K/uL (4.3-11.0)
[2025-07-18 08:00] VITALS: BP 117/69; TEMP 98.1; O2SAT 97
[2025-07-18 16:00] VITALS: BP 111/63; TEMP 97.9; O2SAT 96
[2025-07-18] MEDS: CLOTRIMAZOLE 1% 15 GM TUBE TP SCH (17:01)
[2025-07-18 20:00] VITALS: BP 114/57; TEMP 97.9; O2SAT 96
[2025-07-19] MEDS: Potassium Chloride 20 MEQ in IV NS 0.9% 1,000 ML IV SCH
[2025-07-19 06:20] LABS: PLATELET COUNT (AUTO) 329 K/uL (150-450); RED BLOOD CELL COUNT(AUTO) 3.01 MIL/uL (4.0-5.2); RED CELL DISTRIBUTION WIDTH 17.9 % (11.5-15.0); WHITE BLOOD COUNT (AUTO) 9.2 K/uL (4.3-11.0)
[2025-07-19 06:31] LABS: ASPARTATE AMINOTRANSFERASE 14.0 U/L (15-37); CALCIUM, SERUM 7.9 mg/dL (8.5-10.1); CREATININE 0.9 mg/dL (0.6-1.3); SODIUM SERUM 141.0 mmol/L (136-145); TOTAL PROTEIN, SERUM 6.1 g/dL (6.4-8.2); UREA NITROGEN, BLOOD 19.0 mg/dL (7-18)
[2025-07-19 06:44] LABS: INR 1.06 (0.91-1.10)
[2025-07-19] MEDS ORDERED: POLYMYXIN B SULFATE 500,000 UNITS ONE ×3 (07:08→09:41)
[2025-07-19] MEDS ORDERED: ANESTHESIA TRAY IN PYXIS 1 EA TRAY MC ONE (07:08)
[2025-07-19] MEDS ORDERED: LIDOCAINE 0.5%-EPI 1:200,000 50 ML VIAL ONE (07:09)
[2025-07-19] MEDS ORDERED: CEFAZOLIN 1 GM ONE ×2 (07:09)
[2025-07-19] MEDS ORDERED: VANCOMYCIN 1 GM VIAL ONE ×3 (07:09→09:37)
[2025-07-19] MEDS ORDERED: FAMOTIDINE/PF INJ 20 MG/2 ML VIAL IV ONE (07:50)
[2025-07-19] MEDS ORDERED: KETAMINE HCL (500MG/10ML) 50 MG/ML VIAL ONE (07:50)
[2025-07-19] MEDS ORDERED: FENTANYL PF 100MCG/2ML AMPUL ONE (07:50)
[2025-07-19 08:00] VITALS: BP 119/56; TEMP 98.8; O2SAT 97
[2025-07-19] MEDS ORDERED: GENTAMICIN 80 MG/2 ML VIAL ONE (09:37)
[2025-07-19] MEDS ORDERED: SUGAMMADEX SODIUM 200 MG/2 ML VIAL IV ONE (09:59)
[2025-07-19] MEDS ORDERED: LABETALOL HCL IV 100MG VIAL ONE (10:22)
[2025-07-19] MEDS ORDERED: MAG HYDROX/AL HYDROX/SIMETH 30 ML UDC ONE (10:33)
[2025-07-19] MEDS: Z GUARD REMEDY 4 OZ OINT TP PRN (12:27)
[2025-07-19] MEDS ORDERED: DOCUSATE SODIUM 250 MG CAPSULE PO PRN (12:30)
[2025-07-19] MEDS ORDERED: BISACODYL SUPP (10 MG) 10 MG/SUPP.RECT SUPP.RECT RC PRN (12:30)
[2025-07-19] MEDS ORDERED: SENNOSIDES 8.6 MG TABLET PO PRN (12:30)
[2025-07-19] MEDS: HYDROMORPHONE 1 MG/1 ML DISP.SYRIN IV PRN (12:55)
[2025-07-19] MEDS: HYDROCODONE/APAP 5/325MG TABLET PO PRN (14:25)
[2025-07-19] MEDS: MORPHINE SULFATE INJ 4 MG/ML DISP.SYRIN IV PRN (15:20)
[2025-07-19 16:01] VITALS: BP 117/60; TEMP 97.9; O2SAT 97
[2025-07-19 20:00] VITALS: BP 110/57; TEMP 97.3; O2SAT 97
[2025-07-19 20:42] VITALS: BP 110/57; TEMP 97; O2SAT 97
[2025-07-20 08:00] VITALS: BP 122/83; TEMP 97.4; O2SAT 98
[2025-07-20 08:21] LABS: CALCIUM, SERUM 8.1 mg/dL (8.5-10.1); CREATININE 1.1 mg/dL (0.6-1.3); SODIUM SERUM 134.0 mmol/L (136-145); UREA NITROGEN, BLOOD 19.0 mg/dL (7-18)
[2025-07-20 16:00] VITALS: BP 111/42; TEMP 97.7; O2SAT 98
[2025-07-20 20:00] VITALS: BP 125/82; TEMP 97.5; O2SAT 97
[2025-07-20] MEDS: ONDANSETRON HCL/PF 4 MG/2 ML VIAL IV PRN (22:35)
[2025-07-21 06:47] LABS: PLATELET COUNT (AUTO) 278 K/uL (150-450); RED BLOOD CELL COUNT(AUTO) 2.84 MIL/uL (4.0-5.2); RED CELL DISTRIBUTION WIDTH 18.1 % (11.5-15.0); WHITE BLOOD COUNT (AUTO) 8.2 K/uL (4.3-11.0)
[2025-07-21 07:26] LABS: CALCIUM, SERUM 7.8 mg/dL (8.5-10.1); CREATININE 1.1 mg/dL (0.6-1.3); PHOSPHORUS 3.0 mg/dL (2.5-4.9); SODIUM SERUM 139.0 mmol/L (136-145); UREA NITROGEN, BLOOD 17.0 mg/dL (7-18)
[2025-07-21 08:00] VITALS: BP 122/82; TEMP 98.1; O2SAT 97
[2025-07-21] MEDS: MAGNESIUM OXIDE 400 MG TABLET PO ONE (09:43)
[2025-07-21 16:00] VITALS: BP 134/70; TEMP 97.9; O2SAT 100
[2025-07-21 20:00] VITALS: BP 102/62; TEMP 97.9; O2SAT 97
[2025-07-22 07:29] LABS: PLATELET COUNT (AUTO) 223 K/uL (150-450); RED BLOOD CELL COUNT(AUTO) 2.69 MIL/uL (4.0-5.2); RED CELL DISTRIBUTION WIDTH 18.0 % (11.5-15.0); WHITE BLOOD COUNT (AUTO) 7.3 K/uL (4.3-11.0)
[2025-07-22 07:49] LABS: CALCIUM, SERUM 8.3 mg/dL (8.5-10.1); CREATININE 0.9 mg/dL (0.6-1.3); PHOSPHORUS 3.1 mg/dL (2.5-4.9); SODIUM SERUM 141.0 mmol/L (136-145); UREA NITROGEN, BLOOD 16.0 mg/dL (7-18)
[2025-07-22 09:17] VITALS: BP 129/75
[2025-07-22] MEDS: MAGNESIUM OXIDE 400 MG TABLET PO ONE (09:37)
[2025-07-22] MEDS ORDERED: MERO1VIA23 IV (11:36)
[2025-07-22] MEDS ORDERED: LINE600T12 PO (11:36)
== END 2025-07-22 14:30 | DRG 856 ==
LOC: ER 11:39 → MED 15:08
PROVIDERS: ADMIT Internal Medicine; ATTEND Nurse Practitioner Acute Care
PROC: 0JQ70ZZ Repair Back Subcutaneous Tissue and Fascia, Open Approach (ICD-10-PCS; principal; 2025-07-19 08:00)
PROC: 02HV33Z Insertion of Infusion Device into Superior Vena Cava, Percutaneous Approach (ICD-10-PCS; 2025-07-20)
DX: T81.42XA Infection following a procedure, deep incisional surgical site, initial encounter (principal); R53.2 Functional quadriplegia; T81.31XA Disruption of external operation (surgical) wound, not elsewhere classified, initial encounter; E87.1 Hypo-osmolality and hyponatremia; E83.51 Hypocalcemia; D63.8 Anemia in other chronic diseases classified elsewhere; E11.9 Type 2 diabetes mellitus without complications; I10 Essential (primary) hypertension; M48.061 Spinal stenosis, lumbar region without neurogenic claudication; Z74.01 Bed confinement status; G89.29 Other chronic pain; Z87.891 Personal history of nicotine dependence; Z79.4 Long term (current) use of insulin; Z98.1 Arthrodesis status; Z96.641 Presence of right artificial hip joint; Z79.899 Other long term (current) drug therapy; R79.89 Other specified abnormal findings of blood chemistry; Z92.89 Personal history of other medical treatment
CPT/HCPCS: 36415; 36569; 71045-TC; 72100-TC; 72131-TC; 72132-TC; 72158-TC; 73700-TC; 80048-TC; 80053-TC; 80076-TC; 81001; 82962-TC; 83605-TC; 83735-TC; 84100-TC; 85025-TC; 85610-TC; 85652-TC; 85730-TC; 86140-TC; 86850-TC; 87040-TC; 87070-TC; 87075-TC; 87086-TC; 87102-TC; 87116; 87186-TC; 87206; A4217; A4223; A4338; A6253; A6254; A6403; A9575; G0378; J0690; J0692; J1100; J1171; J1308; J1580; J1644; J1815; J2185; J2270; J2405; J2543; J3010; J3373; J3475; J3480; J3490; J7030; J7040; J7060; Q9967